=== PATIENT | male | born 1985 | race Caucasian/White ===

== ENCOUNTER 2016-06-10 18:50 | Emergency (ER) | payer SELFPAY ==
[~2016-06-10] VITALS: Ht 170.2 cm; Wt 79.0 kg
[2016-06-10 19:04] VITALS: Ht 170.2 cm; Wt 79.0 kg
[2016-06-10] MEDS ORDERED: KETOROLAC 30 MG INJ IM STA (20:48)
--- NOTE | 2016-06-10 21:51 | RADRPT ---
PROCEDURE: X-ray lumbar spine. CLINICAL INDICATION: Low back pain. TECHNIQUE: 3 views lumbar spine COMPARISON: None FINDINGS: Grade 1 anterolisthesis of L5 on S1 with pars interarticularis defects at L5, otherwise age indeterm inate. Age indeterminate and nonspecific anterior wedging at the T12 and L1 levels. Otherwise, rem aining osseous structures in the lumbar spine are without evident acute fracture. Soft tissues unre markable. IMPRESSION: 1. Grade 1 anterolisthesis of L5 on S1, with pars interarticularis defects at L5, otherwise age ind eterminate. 2. Age indeterminate and nonspecific anterior wedging at T12 and L1 levels. RPTAT: [facility] Physician Oleksandr Date Time Electronically viewed and signed by Physician Oleksandr on 06/10/2016 21:51 RS/
[2016-06-10] MEDS ORDERED: NAPR-260 PO (22:03)
[2016-06-10] MEDS ORDERED: CYCL-319 PO (22:04)
[2016-06-10 22:11] VITALS: BP 117/71; PULSE 54; RESP 18; TEMP 98.3
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
== END 2016-06-10 22:11 | disposition home or self-care (01) ==
LOC: FTE 18:50
DX: M54.5 Low back pain (principal)
CPT/HCPCS: 72100; 96372; 99284; J1885